=== PATIENT | male | born 1995 | race African-American/Black ===

== ENCOUNTER 2017-04-25 17:27 | Emergency (ER) | payer BC, SELFPAY ==
[2017-04-25] MEDS ORDERED: Ketorolac Tromethamine 30 MG/ML VIAL ONE (18:12)
[2017-04-25] MEDS ORDERED: Fentanyl 100 MCG/2 ML VIAL ONE (18:59)
--- NOTE | 2017-04-25 21:43 | RAD ---
LEFT SHOULDER 3 VIEWS: Date: 04/25/17 The oblique view shows the humeral head to be placed slightly more posterior than expected with relat ion to the glenoid fossa. 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 This has been seen on prior films, but is more prominent t rafi. There is a prominent Hill-Sachs deformity of the humeral head. The AC joint is normal in width. IMPRESSION: Chronic changes as noted above. There is probably slight posterior subluxation of the humeral head. POS: HOME
--- NOTE | 2017-04-25 21:45 | CT ---
CT OF THE LEFT SHOULDER: Date: 04/25/[address] of the left shoulder was done for evaluation of the plain film findings. Axial slices were acquired, then coronal and sagittal reconstructions were done. FINDINGS: There is posterior subluxation of the humeral head. The Hill-Sachs deformity causes the head to becom e trapped on the posterior lip of the glenoid. As a result, it should be difficult to impossible for him to rotate the humerus. A Bankart's deformity is seen along the inferior glenoid lip. While no fin dings are obviously acute, I cannot exclude a mixture of acute and chronic with regard to the bony fr agments. IMPRESSION: Mild posterior subluxation of the humeral head which causes it to be trapped with the Hill-Sachs defo rmity against the posterior glenoid lip. POS: HOME
--- NOTE | 2017-04-25 21:52 | RAD ---
LEFT SHOULDER 2 VIEWS: Date: 04/25/17 Two post-reduction views were provided. The humeral head still seems a bit more posterior than usual, so I am not convinced that the subluxation has been fully reduced. The chronic changes are noted as were commented on in the pre-reduction study. IMPRESSION: Minimal improvement since the prior study. POS: HOME
== END 2017-04-25 20:07 | disposition home or self-care (01) ==
LOC: BURERS 17:27
DX: S43.025A Posterior dislocation of left humerus, initial encounter (principal); G40.909 Epilepsy, unspecified, not intractable, without status epilepticus; J45.909 Unspecified asthma, uncomplicated; F17.210 Nicotine dependence, cigarettes, uncomplicated; Z79.899 Other long term (current) drug therapy; X58.XXXA Exposure to other specified factors, initial encounter
CPT/HCPCS: 23650; 94760; 96374; 96375; J1885; J3010

== ENCOUNTER 2017-12-12 10:31 | Emergency (ER) | payer BC, SELFPAY ==
[2017-12-12] MEDS ORDERED: Ibuprofen 800 MG TAB ONE (11:03)
--- NOTE | 2017-12-12 14:28 | RAD ---
LEFT SHOULDER 3 VIEWS: Date: 12/12/17 Comparison is made with the 04/25/17 study. FINDINGS: There has been prior fracture along the inferior border of the scapula laterally near the inferior gl enoid. This is an old injury and was present previously. No acute fracture or dislocation is seen. Th e AC joint is normal in width. The visible adjacent ribs appear intact. The humeral head may sit just slightly more anteriorly than normal, but it is not frankly dislocated. IMPRESSION: Old scapular injury beneath the inferior lip of the glenoid fossa. No acute findings. POS: [facility]
== END 2017-12-12 11:20 | disposition home or self-care (01) ==
LOC: BURERS 10:31
DX: S43.402A Unspecified sprain of left shoulder joint, initial encounter (principal); R56.9 Unspecified convulsions; J45.909 Unspecified asthma, uncomplicated; F17.210 Nicotine dependence, cigarettes, uncomplicated; Z79.899 Other long term (current) drug therapy; X50.1XXA Overexertion from prolonged static or awkward postures, initial encounter